=== PATIENT | female | born 1950 | race Caucasian/White ===

== ENCOUNTER 2018-03-31 22:38 | Emergency (ER) | payer OTHER, MEDICARE ==
[~2018-03-31] VITALS: Ht 170.2 cm; Wt 84.8 kg
[~2018-03-31 22:38] MED LIST: ALBUTEROL SULF8.5 GM INH; ALPRAZOLAM0.5 MG PO; ASPIRIN EC81 MG PO; BENICAR20 MG PO; BONIVA150 MG PO; BUSPIRONE HCL10 MG PO; BUSPIRONE HCL5 MG PO; CAFFEINE200 MG PO; CITALOPRAM HBR20 MG PO; CITRUS CALCIUM +1 EA PO; CLONAZEPAM0.5 MG PO; GAVISCON 80-141 EACH PO; IBUPROFEN800 MG PO; IMODIUM MULTI-1 EACH PO; LOVENOX120 MG SUB-Q; OMEPRAZOLE20 MG PO; SUMATRIPTAN SU100 MG PO; SYSTANE LIQUID15 ML OPTH; TYLENOL325 MG PO; VITAMIN D5000 UNIT PO; WARFARIN SODIUM5 MG PO
[2018-03-31] MEDS ORDERED: ALREX5 ML OPTH (22:58)
[2018-03-31] MEDS ORDERED: ASMANEX110 MCG INH (22:59)
[2018-04-01] MEDS ORDERED: PERCOCET 5-3251 EACH PO (00:30)
[2018-04-01] MEDS ORDERED: CRUTCH1 EACH MISC (00:31)
== END 2018-04-01 00:46 | disposition home or self-care (01) ==
LOC: ED 22:38
DX: S80.01XA Contusion of right knee, initial encounter (principal); W19.XXXA Unspecified fall, initial encounter; K21.9 Gastro-esophageal reflux disease without esophagitis; F41.9 Anxiety disorder, unspecified; F32.9 Major depressive disorder, single episode, unspecified; Z88.0 Allergy status to penicillin; Z88.1 Allergy status to other antibiotic agents; Z88.8 Allergy status to other drugs, medicaments and biological substances; Z88.5 Allergy status to narcotic agent; Z79.899 Other long term (current) drug therapy; Z79.01 Long term (current) use of anticoagulants
CPT/HCPCS: 73700; 85610; 99284